=== PATIENT | male | born 1955 | race Caucasian/White ===

== ENCOUNTER 2017-09-10 05:56 | Day surgery (SDC) | payer BC ==
[~2017-09-10] VITALS: Ht 185.4 cm; Wt 103.0 kg
--- NOTE | ~2017-09-10 | OP ---
PATIENT NAME: FLORES OLEARY MEDICAL RECORD: [id number] :57 LOCATION:[facility] ADMISSION DATE: SURGEON: KASSIE MANRIQUEZ MD DATE OF OPERATION: 09/10/2017 PREOPERATIVE DIAGNOSIS: Rectal cancer in need of IV access for chemotherapy. POSTOPERATIVE DIAGNOSIS: Rectal cancer in need of IV access for chemotherapy. PROCEDURES: 1. Placement of a left infraclavicular PowerPort under fluoroscopic guidance. 2. Immediate surgeon interpretation of the fluoroscopic images. SURGEON: Kassie Manriquez MD PERINATAL INSTRUCTOR: None. BLOOD LOSS: 50 cc. ANESTHESIA: General. COMPLICATIONS: None. The risks, possible complications, and alternatives to procedure were explained to the patient. The patient elected to proceed. The discussion specifically included, but was not limited to, bleeding requiring an emergency reoperation, infection, flippage of the port, clotting off of the port. The patient elected to proceed. OPERATIVE COURSE: The patient was conveyed to the operating room electively. General anesthesia was induced by the anesthesia staff. The left neck and left chest were sterilely prepped and draped. A transverse incision was accomplished inferior to the left clavicle. Sharp dissection was carried down to the level of the pectoralis fascia. A subcutaneous pocket was created bluntly in a caudad direction. Some of the adipose tissue was excised from the anterior portion of the pocket to allow for easier access of the port. I dissected down in the deltopectoral groove and identified a generous cephalic vein. Two ties were placed on the cephalic vein laterally and one loose tie was placed medially. A small venotomy was accomplished. Through the venotomy, the PowerPort catheter was advanced. This was advanced under fluoroscopy. No radiologist was present for this procedure. Static fluoroscopic images were obtained and are kept in the PACS system. The surgeon interpretation of the radiographic images is dictated within the body of this operative note. The catheter was advanced to the cavoatrial junction. The catheter was shortened. It was attached to the PowerPort. The locking device was firmly engaged. The medial tie was then tied down and another tie, this one a 3-0 Vicryl, was placed around the vein medially. I then divided the vein between the ties. The port was placed in the subcutaneous pocket and sutured to the underlying pectoralis fascia with 3-point fixation utilizing 3-0 Prolene. I irrigated in the subcutaneous pocket and there was no bleeding. The subdermis was approximated with interrupted 3-0 Vicryl. The skin was approximated with a running intracuticular 4-0 Vicryl. I then accessed the port. It accessed easily. I aspirated dark, nonpulsatile blood. It also flushed easily as well. OPERATIVE REPORT [id number] FLORES OLEARY A sterile dressing was applied. The patient was then conveyed to the postanesthesia care unit. TRANSINT:[id number] Voice Confirmation ID: [id number] DOCUMENT ID: [id number] KASSIE MANRIQUEZ MD at 1042 CC: LINDA PEREYRA MD and YAMILETH NGUYEN DO [id number] DICTATION DATE: 09/10/17 0943 PUBLIC SERVICES ASSISTANT: 09/10/17 1049 [facility] 09/10/17 [id number] [place] [address]
[~2017-09-10 05:56] MED LIST: LISINOPRIL10 MG PO; ZIAC 2.5/6.25 M1 TAB PO
[2017-09-10 06:43] LABS: APTT 26.4 SECONDS (22.8-39.4); INR 1.01 (0.85-1.17); PROTIME 12.9 SECONDS (11.6-15.0)
[2017-09-10 06:49] VITALS: BP 108/74; Ht 185.4 cm; Wt 103.0 kg
[2017-09-10 07:07] LABS: BASOPHILS 0.4 % (0-2); EOSINOPHILS 5.2 % (0-7); HEMATOCRIT 29.8 % (42.0-54.0); HEMOGLOBIN 8.7 g/dL (13.5-17.5); IMMATURE GRANULOCYTES 0.3 % (0-5); LYMPHOCYTES 31.2 % (15-50); MCH 21.8 pg (26.0-34.0); MCHC 29.2 g/dL (31.0-37.0); MCV 74.5 fL (80.0-100.0); MEAN PLATELET VOLUME 10.3 fL (7.4-10.4); MONOCYTES 12.1 % (2-11); NEUTROPHILS 50.8 % (40-80); PLATELET COUNT 298 10x3/uL (130-400); RDW 18.4 % (11.5-14.5); WBC 7.4 10x3/uL (4.8-10.8)
== END 2017-09-10 11:03 | disposition home or self-care (01) ==
LOC: D.OPS 05:56 → D.PAN 08:00 → D.OPS 08:00
PROVIDERS: Anesthesiology
DX: C20 Malignant neoplasm of rectum (principal); Z01.812 Encounter for preprocedural laboratory examination

== ENCOUNTER → 2017-09-13 14:07 | Outpatient (CLI) | payer BC | END | disposition home or self-care (01) | LOC: D.MRI 09-10 10:00 | DX: C19 Malignant neoplasm of rectosigmoid junction (principal) ==

== ENCOUNTER → 2017-11-24 12:51 | Outpatient (CLI) | payer BC | END | disposition home or self-care (01) | LOC: D.MRI 12:00 | DX: C19 Malignant neoplasm of rectosigmoid junction (principal) ==

== ENCOUNTER 2017-12-29 08:40 | Inpatient (IN) | payer BC ==
[2017-12-27 12:30] LABS: BASOPHILS 0.4 % (0-2); EOSINOPHILS 3.1 % (0-7); HEMATOCRIT 38.6 % (42.0-54.0); HEMOGLOBIN 12.3 g/dL (13.5-17.5); IMMATURE GRANULOCYTES 0.5 % (0-5); LYMPHOCYTES 35.7 % (15-50); MCH 26.5 pg (26.0-34.0); MCHC 31.9 g/dL (31.0-37.0); MCV 83.2 fL (80.0-100.0); MEAN PLATELET VOLUME 9.9 fL (7.4-10.4); MONOCYTES 17.2 % (2-11); NEUTROPHILS 43.1 % (40-80); RBC 4.64 10x6/uL (4.20-6.10); WBC 5.5 10x3/uL (4.8-10.8)
[2017-12-27 12:34] LABS: PLATELET COUNT 166 10x3/uL (130-400)
[2017-12-27 12:50] LABS: APTT 27.4 SECONDS (22.8-39.4); INR 0.99 (0.85-1.17); PROTIME 12.7 SECONDS (11.6-15.0)
[2017-12-29] VITALS (10 sets, daily range): BP systolic 97–134; BP diastolic 65–93
[~2017-12-29] VITALS: Ht 185.4 cm; Wt 104.3 kg
--- NOTE | ~2017-12-29 | OP ---
PATIENT NAME: FLORES OLEARY SR MEDICAL RECORD: [id number] :57 LOCATION:[id number] ADMISSION DATE:12/29/17 SURGEON: KASSIE MANRIQUEZ MD DATE OF OPERATION: 12/29/2017 PREOPERATIVE DIAGNOSIS: Adenocarcinoma of the rectosigmoid junction. POSTOPERATIVE DIAGNOSIS: Rectal adenocarcinoma at the upper third of the rectum. PROCEDURES: 1. Hand-assisted laparoscopic surgery - low anterior resection. 2. Incidental appendectomy. SURGEON: Kassie Manriquez MD BRAKE REPAIRER HYDRAULIC: Dr. Yuval Pena. BLOOD LOSS: 250 cc. ANESTHESIA: General. COMPLICATIONS: None. The risks, possible complications and alternatives to the procedure were explained to the patient. He elects to proceed. Before the procedure, an epidural catheter was placed for postoperative pain relief. The reason for the incidental appendectomy is to remove it as a source of confusion in the future should the patient have a persistence or recurrence of abdominal pain. OPERATIVE COURSE: The patient was conveyed to the operating room electively on 12/29/2017. General anesthesia was induced by the anesthesia staff. The patient was positioned in the lithotomy position in adjustable stirrups. The abdomen and genitals and perineum were sterilely prepped and draped. A transverse incision was accomplished 2 fingerbreadths cephalad to the pubic symphysis. Sharp dissection was carried down through skin and subcutaneous tissue as well as Lizet fascia. Anterior fascia was incised transversely. The rectus muscles were . Stay sutures were placed on the peritoneum on either side. I then incised the peritoneum and entered the peritoneal cavity sharply. An Miguelangel retractor was placed. I identified the appendix, which was retrocecal. I was able to mobilize the appendix. I took down the mesoappendix with the EnSeal device. I stapled across the tip of the cecum with a ERICA-75 stapler completing the incidental appendectomy. I began my dissection down in the pelvis via the Miguelangel retractor. I incised in the pelvis on to the right and to the left of the rectum. I identified both ureters and these were encircled with vessel loops for retraction and identification. They were undamaged during the operation. I then continued my sharp dissection down along the upper rectal stalks. OPERATIVE REPORT [id number] FLORES OLEARY SR I could feel the mass, which was below where the tinea splayed out and was there for a rectal mass. I placed the Gelport device on top of the Miguelangel retractor. Through the Gelport device, a 12-mm trocar was inserted. CO2 insufflation was begun. Under direct internal vision utilizing television camera, a 5-mm trocar was inserted through an incision in the epigastrium and another 5-mm trocar was inserted through the incision in the left lower quadrant. Utilizing hand-assisted approach, I incised the left white line of Toldt up to the splenic flexure. I rolled the left colon medially. There was no damage to the spleen. Once I mobilized the left colon, I took off the Miguelangel retractor. I chose a point for revision that was at the colon and this was at the junction of the descending and sigmoid colons. I stapled across the colon here with a ERICA-75 stapler. I chose the distal extent of my resection to be about 2 inches distal to the tumor. I stapled across the rectum here with a TA 60 stapler. The interposed mesentery was taken down with the laparoscopic EnSeal device. I then excised the staple line at the descending colon. I inserted a 29 anvil EEA stapler and brought this out through the antimesenteric border of the colon. I then stapled across the colonic defect with a TA 60 stapler. We then elevated the patient's legs. Dr. Pena then was kind enough to dilate the anus and rectum with EEA sizers. He inserted the EEA stapling device and advanced the docking device. I then applied the EEA stapler to the docking device. He then tightened down the EEA stapler and fired. He then loosened it up and removed it. I ensured there was no damage to either ureter during this procedure. No damage to the bladder. Attention was then turned to the pneumatic testing of the staple line. I filled up the pelvis with normal saline. I occluded the descending colon. He inflated the rectum with air under pressure and there was no bubbling from the anastomosis and therefore no evidence of an anastomotic leak. There were 2 complete anvils within the stapling device. I opened up the specimen on the back table. This revealed that grossly the distal margin was free. We then regowned and gloved, I irrigated in the pelvis with normal saline. I then reperitonealized the lower incision with running #1 Vicryl. The rectus muscles were approximated with multiple interrupted horizontal mattress #1 Vicryl. The anterior fascia was closed with running #1 Vicryl. Lizet fascia was approximated with interrupted 3-0 Vicryl. The subdermis was approximated with interrupted 3-0 Vicryl. The skin in the suprapubic area was closed with a running intracuticular 4-0 Vicryl. The other 2 trocar sites were closed with single interrupted intracuticular 3-0 Vicryl. Benzoin and Steri-Strips were applied. The patient was then extubated and conveyed to post-anesthesia care unit where he was in stable condition. TRANSINT:[id number] Voice Confirmation ID: [id number] DOCUMENT ID: [id number] OPERATIVE REPORT [id number] FLORES OLEARY SR, ROBERT MD at 1840 CC: AJ ADLER and KYLER RODRÍGUEZ MD [id number] DICTATION DATE: 12/29/17 184 ANALOG DEVICE DESIGNER: 12/29/17 2232 ADM IN [facility] [address] [place] [address]
--- NOTE | ~2017-12-29 | OP ---
PATIENT NAME: FLORES OLEARY SR MEDICAL RECORD: [id number] :57 LOCATION:[facility] ADMISSION DATE:12/29/17 SURGEON: LYNETTE ZHANG MD DATE OF OPERATION: 12/29/2017 APPLICATOR SPRAYER NOTE PREOPERATIVE DIAGNOSIS: Adenocarcinoma of the rectosigmoid junction. POSTOPERATIVE DIAGNOSIS: Rectal adenocarcinoma at the upper third of the rectum. PROCEDURE: Hand-assisted laparoscopic low anterior resection with incidental appendectomy. SURGEON: Jose Dye MD APPLICATOR SPRAYER: Lynette Zhang MD REPORT OF OPERATION: I assisted Dr. Dye on placement and firing of the EEA stapler for the rectoanal anastomosis. Dr. Dye performed the remainder of the operation. We then inspected the anastomosis by instilling air into the rectum with it under water and saw there was no sign of a leak. There were 2 complete donuts present in the EEA stapler. TRANSINT:[id number] Voice Confirmation ID: [id number] DOCUMENT ID: [id number] LYNETTE ZHNAG MD at 1418 CC: [id number] DICTATION DATE: 12/30/17 1306 RESOLUTION AGENT: 12/30/17 1341 DIS IN 01/03/18 [facility] [address] [place] [address]
--- NOTE | ~2017-12-29 | DS ---
PATIENT:FLORES OLEARY SR :57 MEDICAL RECORD: [id number] DISCHARGE SUMMARY ADMISSION DATE: 12/29/17 DISCHARGE DATE: 01/03/18 PRINCIPAL DIAGNOSES: 1. Adenocarcinoma of the rectum, path pending at the time of this discharge summary. 2. Hypertension. 3. Cardiomyopathy, chronic. 4. Gastroesophageal reflux. 5. Former tobacco abuse. PROCEDURES: 1. Hand-assisted laparoscopic surgery - low anterior resection. 2. Incidental appendectomy. HOSPITAL COURSE: The patient underwent the above operative procedure. The patient had some fever postoperatively of uncertain etiology. He was started on IV antibiotics due to his fever. The patient had return of bowel function. The epidural catheter was removed. His diet was advanced. His pain was maintained on oral analgesia. He is being dismissed home. Discharge instructions were given to the patient verbally by me. He was instructed to call for any severe nausea, vomiting, fever, chills, chest pain, or shortness of breath. He can shower. He is not to take any tub baths. I will see him in the office in 2-3 weeks. At the time of dismissal, the pathology on the operative specimen is still pending. TRANSINT:[id number] Voice Confirmation ID: [id number] DOCUMENT ID: [id number] KASSIE MANRIQUEZ MD at 1719 CC: KYLER RODRÍGUEZ MD [id number] DICTATION DATE: 01/03/18 1608 MECHANICAL SHOP LABORER: 01/03/18 2344 DIS IN 01/03/18 [id number] [place] [address]
[2017-12-29 21:40] LABS: BASOPHILS 0.1 % (0-2); EOSINOPHILS 0 % (0-7); HEMATOCRIT 36.2 % (42.0-54.0); HEMOGLOBIN 11.5 g/dL (13.5-17.5); IMMATURE GRANULOCYTES 0.3 % (0-5); LYMPHOCYTES 5.1 % (15-50); MCH 26.7 pg (26.0-34.0); MCHC 31.8 g/dL (31.0-37.0); MCV 84.2 fL (80.0-100.0); MEAN PLATELET VOLUME 9.7 fL (7.4-10.4); MONOCYTES 8.2 % (2-11); NEUTROPHILS 86.3 % (40-80); RDW 19.7 % (11.5-14.5); WBC 11.7 10x3/uL (4.8-10.8)
[2017-12-29 21:41] LABS: PLATELET COUNT 129 10x3/uL (130-400)
[2017-12-29 21:55] LABS: ALBUMIN 3.1 g/dL (3.4-5.0); ANION GAP 9.4 mmol/L (8-16); BILIRUBIN - TOTAL 0.74 mg/dL (0.2-1.3); CARBON DIOXIDE 26.4 mmol/L (21.0-32.0); CREATININE - SERUM 1.1 mg/dL (0.6-1.3); POTASSIUM - SERUM 3.8 mmol/L (3.5-5.1); PRE-ALBUMIN 20.2 mg/dL (18.0-35.7); PROTEIN - SERUM 6.7 g/dL (6.4-8.2)
[2017-12-30] VITALS (7 sets, daily range): BP systolic 90–135; BP diastolic 50–77; Ht 185.4 cm; Wt 104.3 kg
[2017-12-30 10:46] LABS: BASOPHILS 0 % (0-2); EOSINOPHILS 0 % (0-7); HEMATOCRIT 31.8 % (42.0-54.0); IMMATURE GRANULOCYTES 0.2 % (0-5); LYMPHOCYTES 7.8 % (15-50); MCH 26.3 pg (26.0-34.0); MCHC 31.4 g/dL (31.0-37.0); MCV 83.7 fL (80.0-100.0); MEAN PLATELET VOLUME 9.9 fL (7.4-10.4); MONOCYTES 9.9 % (2-11); NEUTROPHILS 82.1 % (40-80); PLATELET COUNT 126 10x3/uL (130-400); RDW 19.9 % (11.5-14.5); WBC 13.9 10x3/uL (4.8-10.8)
[2017-12-30 11:00] LABS: ALBUMIN 2.7 g/dL (3.4-5.0); ANION GAP 13.2 mmol/L (8-16); BILIRUBIN - TOTAL 0.65 mg/dL (0.2-1.3); CARBON DIOXIDE 21.9 mmol/L (21.0-32.0); CREATININE - SERUM 1.2 mg/dL (0.6-1.3); POTASSIUM - SERUM 4.1 mmol/L (3.5-5.1); PROTEIN - SERUM 5.9 g/dL (6.4-8.2)
[2017-12-31] VITALS (7 sets, daily range): BP systolic 134–153; BP diastolic 77–90
[2017-12-31 05:52] LABS: BASOPHILS 0.2 % (0-2); EOSINOPHILS 0.2 % (0-7); HEMATOCRIT 30.7 % (42.0-54.0); HEMOGLOBIN 9.5 g/dL (13.5-17.5); IMMATURE GRANULOCYTES 0.4 % (0-5); LYMPHOCYTES 10.4 % (15-50); MCH 26.3 pg (26.0-34.0); MCHC 30.9 g/dL (31.0-37.0); MONOCYTES 10.6 % (2-11); NEUTROPHILS 78.2 % (40-80); PLATELET COUNT 118 10x3/uL (130-400); RBC 3.61 10x6/uL (4.20-6.10); WBC 11.1 10x3/uL (4.8-10.8)
[2017-12-31 06:41] LABS: ALBUMIN 2.6 g/dL (3.4-5.0); ALKALINE PHOSPHATASE 57 U/L (46-116); ALT (SGPT) 26 U/L (10-68); BILIRUBIN - TOTAL 0.83 mg/dL (0.2-1.3); CALC OSMOLALITY 275 mosm/kg (275-300); CALCIUM 7.6 mg/dL (8.5-10.1); CARBON DIOXIDE 24.7 mmol/L (21.0-32.0); CHLORIDE - SERUM 107 mmol/L (98-107); GLUCOSE 104 mg/dL (74-106); POTASSIUM - SERUM 3.9 mmol/L (3.5-5.1); PROTEIN - SERUM 5.8 g/dL (6.4-8.2); SODIUM 138 mmol/L (136-145); UREA NITROGEN 12 mg/dL (7-18); eGFR NON AFRICAN AMERICAN 81 mL/min (90-120)
[2017-12-31 12:44] LABS: APPEARANCE CLEAR (CLEAR); BILIRUBIN NEGATIVE (NEGATIVE); COLOR YELLOW (YELLOW); GLUCOSE NEGATIVE (NEGATIVE); KETONE NEGATIVE (NEGATIVE); NITRITE NEGATIVE (NEGATIVE); PROTEIN NEGATIVE (NEGATIVE); SPECIFIC GRAVITY 1.005 (1.005-1.020); UROBILINOGEN NORMAL (NORMAL)
[2017-12-31 12:46] LABS: BACTERIA FEW /hpf (NONE SEEN); EPITHELIAL CELLS 0-5 /hpf (0-5); MUCUS <1+ /lpf (NONE SEEN); WHITE CELLS - URINE 0-5 /hpf (0-5)
[2018-01-01 03:50] VITALS: BP 136/89
[2018-01-01 06:37] LABS: ALBUMIN 2.6 g/dL (3.4-5.0); ALKALINE PHOSPHATASE 59 U/L (46-116); ALT (SGPT) 26 U/L (10-68); BILIRUBIN - TOTAL 0.74 mg/dL (0.2-1.3); CALC OSMOLALITY 274 mosm/kg (275-300); CALCIUM 7.9 mg/dL (8.5-10.1); CARBON DIOXIDE 25.2 mmol/L (21.0-32.0); CHLORIDE - SERUM 106 mmol/L (98-107); CREATININE - SERUM 0.9 mg/dL (0.6-1.3); GLUCOSE 109 mg/dL (74-106); PROTEIN - SERUM 6.2 g/dL (6.4-8.2); SODIUM 138 mmol/L (136-145); UREA NITROGEN 7 mg/dL (7-18); eGFR NON AFRICAN AMERICAN > 90 mL/min (90-120)
[2018-01-01 06:41] LABS: BASOPHILS 0.2 % (0-2); EOSINOPHILS 1.9 % (0-7); HEMATOCRIT 29.1 % (42.0-54.0); HEMOGLOBIN 9.2 g/dL (13.5-17.5); IMMATURE GRANULOCYTES 0.2 % (0-5); LYMPHOCYTES 12.6 % (15-50); MCH 26.8 pg (26.0-34.0); MCHC 31.6 g/dL (31.0-37.0); MCV 84.8 fL (80.0-100.0); MEAN PLATELET VOLUME 9.9 fL (7.4-10.4); MONOCYTES 10.4 % (2-11); NEUTROPHILS 74.7 % (40-80); PLATELET COUNT 124 10x3/uL (130-400); RBC 3.43 10x6/uL (4.20-6.10); RDW 19.4 % (11.5-14.5); WBC 9.4 10x3/uL (4.8-10.8)
[2018-01-01 07:07] VITALS: BP 147/87
[2018-01-01 12:28] VITALS: BP 157/88
[2018-01-01 15:53] VITALS: BP 144/88
[2018-01-01 20:08] VITALS: BP 159/94
[2018-01-01 23:54] VITALS: BP 173/99
[2018-01-02 03:53] VITALS: BP 157/93
[2018-01-02 05:53] LABS: BASOPHILS 0.2 % (0-2); EOSINOPHILS 4.8 % (0-7); HEMATOCRIT 29.2 % (42.0-54.0); HEMOGLOBIN 9.2 g/dL (13.5-17.5); IMMATURE GRANULOCYTES 0.5 % (0-5); LYMPHOCYTES 15.8 % (15-50); MCH 26.6 pg (26.0-34.0); MCHC 31.5 g/dL (31.0-37.0); MCV 84.4 fL (80.0-100.0); MEAN PLATELET VOLUME 10.5 fL (7.4-10.4); MONOCYTES 12.7 % (2-11); PLATELET COUNT 131 10x3/uL (130-400); RBC 3.46 10x6/uL (4.20-6.10)
[2018-01-02 06:26] LABS: ALBUMIN 2.6 g/dL (3.4-5.0); ALKALINE PHOSPHATASE 61 U/L (46-116); ALT (SGPT) 31 U/L (10-68); BILIRUBIN - TOTAL 0.67 mg/dL (0.2-1.3); CALC OSMOLALITY 275 mosm/kg (275-300); CALCIUM 8.1 mg/dL (8.5-10.1); CARBON DIOXIDE 25.9 mmol/L (21.0-32.0); CHLORIDE - SERUM 105 mmol/L (98-107); CREATININE - SERUM 0.7 mg/dL (0.6-1.3); GLUCOSE 102 mg/dL (74-106); POTASSIUM - SERUM 3.4 mmol/L (3.5-5.1); PROTEIN - SERUM 6.1 g/dL (6.4-8.2); SODIUM 140 mmol/L (136-145); eGFR NON AFRICAN AMERICAN > 90 mL/min (90-120)
[2018-01-02 06:28] LABS: UREA NITROGEN 5 mg/dL (7-18)
[2018-01-02 08:06] VITALS: BP 148/93
[2018-01-02 11:46] VITALS: BP 154/89
[2018-01-02 20:01] VITALS: BP 156/86
[2018-01-03 03:45] VITALS: BP 149/90
[2018-01-03 06:37] LABS: BASOPHILS 0.4 % (0-2); EOSINOPHILS 7.1 % (0-7); HEMATOCRIT 30.7 % (42.0-54.0); HEMOGLOBIN 9.8 g/dL (13.5-17.5); IMMATURE GRANULOCYTES 0.6 % (0-5); LYMPHOCYTES 23.1 % (15-50); MCH 27.1 pg (26.0-34.0); MCHC 31.9 g/dL (31.0-37.0); MCV 84.8 fL (80.0-100.0); MEAN PLATELET VOLUME 9.4 fL (7.4-10.4); MONOCYTES 14.4 % (2-11); NEUTROPHILS 54.4 % (40-80); PLATELET COUNT 137 10x3/uL (130-400); RBC 3.62 10x6/uL (4.20-6.10); RDW 18.8 % (11.5-14.5); WBC 4.9 10x3/uL (4.8-10.8)
[2018-01-03 07:11] LABS: ALBUMIN 2.5 g/dL (3.4-5.0); ALKALINE PHOSPHATASE 57 U/L (46-116); ALT (SGPT) 37 U/L (10-68); BILIRUBIN - TOTAL 0.48 mg/dL (0.2-1.3); CALC OSMOLALITY 280 mosm/kg (275-300); CALCIUM 8.1 mg/dL (8.5-10.1); CARBON DIOXIDE 27.6 mmol/L (21.0-32.0); CHLORIDE - SERUM 107 mmol/L (98-107); CREATININE - SERUM 0.8 mg/dL (0.6-1.3); GLUCOSE 102 mg/dL (74-106); POTASSIUM - SERUM 3.5 mmol/L (3.5-5.1); PROTEIN - SERUM 6.2 g/dL (6.4-8.2); SODIUM 142 mmol/L (136-145); UREA NITROGEN 6 mg/dL (7-18); eGFR NON AFRICAN AMERICAN > 90 mL/min (90-120)
[2018-01-03 08:20] VITALS: BP 156/88
[2018-01-03 12:06] VITALS: BP 148/82
[2018-01-03 16:41] VITALS: BP 144/93
== END 2018-01-03 17:34 | disposition home or self-care (01) | DRG 330 ==
LOC: D.MS 08:40 → D.SDCHOLD 08:40 → D.MS 19:28 → D.SDCHOLD 12-30 14:31 → D.MS 12-30 14:33
PROVIDERS: Anesthesiology; Family Medicine; Surgery
PROC: 0DTN0ZZ Resection of Sigmoid Colon, Open Approach (ICD-10-PCS; principal; 2017-12-29 10:30)
PROC: 0DTJ0ZZ Resection of Appendix, Open Approach (ICD-10-PCS; 2017-12-29 10:30)
DX: C19 Malignant neoplasm of rectosigmoid junction (principal); I42.9 Cardiomyopathy, unspecified; I10 Essential (primary) hypertension; K21.9 Gastro-esophageal reflux disease without esophagitis; Z87.891 Personal history of nicotine dependence; I95.81 Postprocedural hypotension; R00.0 Tachycardia, unspecified; R50.82 Postprocedural fever; R73.9 Hyperglycemia, unspecified